=== PATIENT | male | born 1985 | race African-American/Black ===

== ENCOUNTER 2018-04-12 22:45 | Emergency (ER) | payer OTHER ==
[2018-04-12] MEDS ORDERED: Adacel (T-DAP) 0.5 ML SYRINGE ONE (23:54)
[2018-04-13] MEDS ORDERED: Lidocaine 1% PF 5 ML VIAL ONE (00:26)
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
== END 2018-04-13 01:08 | disposition home or self-care (01) ==
LOC: ERS 22:45
DX: S01.511A Laceration without foreign body of lip, initial encounter (principal); S00.12XA Contusion of left eyelid and periocular area, initial encounter; E11.9 Type 2 diabetes mellitus without complications; Y09 Assault by unspecified means
CPT/HCPCS: 40650; 70450; 70486; 72125; 90471; 90715; J2001